=== PATIENT | male | born 1965 | race Caucasian/White ===

== ENCOUNTER 2018-05-03 08:30 | Day surgery (SDC) | payer OTHER ==
[2018-05-03] MEDS ORDERED: ECOTRIN PO NR (09:08)
[2018-05-03] MEDS ORDERED: NACL 0.9% 500 ML 500 ML IV SCH (10:00)
[2018-05-03 10:24] LABS: Basophils % (Auto) 0.8 % (0.0-1.8); Eosinophils # (Auto) 0.2 K/mm3 (0.0-0.4); Eosinophils % (Auto) 4.1 % (0.0-4.3); Hemoglobin 15.2 gm/dl (11.8-15.2); Lymphocytes # (Auto) 1.6 K/mm3 (1.2-5.4); Lymphocytes % (Auto) 27.6 % (13.4-35.0); Mean Corpuscular HGB Conc 34 % (32-34); Mean Corpuscular Hemoglobin 31 pg (28-32); Mean Corpuscular Volume 93 fl (84-94); Monocytes # (Auto) 0.8 K/mm3 (0.0-0.8); Monocytes % (Auto) 13.5 % (0.0-7.3); Platelet Count 188 K/mm3 (140-440); Red Blood Count 4.84 M/mm3 (3.65-5.03); Red Cell Distribution Width 12.9 % (13.2-15.2)
[2018-05-03 10:34] LABS: INR 0.87 (0.87-1.13)
[2018-05-03 10:35] LABS: BUN/Creatinine Ratio 20; Blood Urea Nitrogen 22 mg/dL (9-20); Calcium 9.7 mg/dL (8.4-10.2); Hemolysis Index 5; Partial Thromboplastin Time 25.3 Sec. (24.2-36.6)
[2018-05-03] MEDS ORDERED: HEPARIN 10,000 UNITS/10 ML ONE (10:58)
[2018-05-03] MEDS ORDERED: HEPARIN/NS 5000 UNIT/500ML(CATH LAB) 1,000 ML IR ONE (10:58)
[2018-05-03] MEDS ORDERED: NITROGLYCERIN SYRINGE 3 ML ONE (10:59)
[2018-05-03] MEDS ORDERED: SUBLIMAZE ONE (10:59)
[2018-05-03] MEDS ORDERED: CALAN ONE (10:59)
[2018-05-03] MEDS ORDERED: XYLOCAINE 2% INFILTRATI ONE (10:59)
[2018-05-03] MEDS ORDERED: VERSED ONE (10:59)
--- NOTE | 2018-05-03 12:13 | Short Stay Summary ---
Short Stay Documentation Date of service: 05/03/18 - History H&P: obtained from office - Allergies and Medications Current Medications: Allergies No Known Allergies Allergy (Unverified 05/03/18 08:33) Active Medications Sodium Chloride (Nacl 0.9% 500 Ml) 500 mls @ 50 mls/hr IV DIRECT PREET Stop: 05/03/18 19:59 Last Admin: 05/03/18 11:08 Dose: 50 mls/hr - Brief post op/procedure progress note Date of procedure: 05/03/18 Pre-op diagnosis: chf Post-op diagnosis: same Procedure: see report Anesthesia: local Estimated blood loss: none Pathology: none - Disposition Condition at discharge: Good Disposition: DC-01 TO HOME OR SELFCARE - Discharge Diagnoses (1) Hypertension Status: Chronic Qualifiers: Hypertension type: essential hypertension Qualified Code(s): I10 - Essential (primary) hypertension (2) Hyperlipemia, mixed Status: Chronic (3) CAD (coronary artery disease) Status: Acute Qualifiers: Coronary Disease-Associated Artery/Lesion type: [place] artery [place] vs. transplanted heart: [place] heart Associated angina: without angina Qualified Code(s): I25.10 - Atherosclerotic heart disease of [place] coronary artery without angina pectoris (4) Systolic heart failure Status: Acute Qualifiers: Heart failure chronicity: acute on chronic Qualified Code(s): I50.23 - Acute on chronic systolic (congestive) heart failure Short Stay Discharge Plan Diet: low fat, low cholesterol, low salt Wound: keep clean and dry Follow up with: MATTHEW URIARTE MD [Primary Care Provider] - 7 Days
--- NOTE | 2018-05-03 14:00 | Cardiac Catherization Report ---
LEFT HEART CATHETERIZATION ORDERING PHYSICIAN: Dr. Sylvester Kinney. 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 Moderate sedation supervised with 0.5 mg Versed and 25 mcg of fentanyl. Total sedation time was 20 minutes, start at 11:37 a.m. finished at 11:57 a.m. Procedure was performed via the right radial artery. Normal Dwayne's test, sterile technique, local and 6-Danish radial sheath inserted. PROCEDURE FINDINGS: Left system engaged with 3.5 catheter, left main is a feygih-wv-uptxt caliber vessels, patent, short. LAD is a afldri-wz-tnjlo caliber vessel, proximal is patent. Diagonal 1 is a medium caliber vessel, patent, then the LAD, mid has a diffuse 30% to 40% then diagonal 2 is a lvvvh-fj-whawvm caliber vessel and ostial 70%. Rest of the LAD is patent, medium caliber. Circumflex is a codominant vessel, proximal is patent. Ramus is a small caliber vessel, has a mid 40%, mid has a 40% to 50% crossed and a small OM1 that is less than 2 mm. Then, a distal circumflex prior to the OM2, OM3 has a focal 80% to 90% lesion noted. RCA is a small caliber vessel, proximal 60%, mid diffuse with focal areas of 80% to 90%, but the caliber vessel is less than 2.25 mm. LV gram done in [place] and [place] shows svrvieou-eu-kbpxca LV dysfunction, EF 30% to 35%. LVEDP of 10 mmHg, LV is 116 mmHg. Aortic is 114/69. No gradient across the aortic valve on pullback; 5-Danish catheters were taken over a guidewire, 6-Danish radial sheath was discontinued. Radial band applied. No hematoma, no bleeding. SUMMARY: 1. Nonobstructive coronary artery disease, disproportionate to cardiomyopathy. Left main patent, LAD mid 30% diagonal to ostial 70%, ramus 40%, circ mid 40-50. Distal is 80%, small OM1, 2, and 3 and RCA is a small vessel, less than 2.25 mm with a mid 80% to 90%. 2. We will treat medically at this time. Discussed this with the patient and the patient's family. JOB# [id number] NOAH/LEILANI
[2018-05-03 17:04] VITALS: BP 111/77
== END 2018-05-03 16:15 | disposition home or self-care (01) ==
LOC: CATHLABREC 08:30
PROVIDERS: ATTEND Internal Medicine
DX: I25.10 Atherosclerotic heart disease of native coronary artery without angina pectoris (principal); I42.0 Dilated cardiomyopathy; I11.0 Hypertensive heart disease with heart failure; I50.21 Acute systolic (congestive) heart failure; I49.3 Ventricular premature depolarization; B19.20 Unspecified viral hepatitis C without hepatic coma; Z79.82 Long term (current) use of aspirin; Z79.899 Other long term (current) drug therapy
CPT/HCPCS: 36415; 80048; 85025; 85610; 85730; 93005; 93010; 93458; 99156; C1894; J1644; J2250; J3010; J7040; Q9967

== ENCOUNTER 2018-05-27 10:30 | Observation (INO) | payer OTHER ==
[2018-05-27] MEDS ORDERED: NACL 0.9% 1 ML, VANCOMYCIN VIAL 1,000 MG IR ONE (11:03)
--- NOTE | 2018-05-27 11:18 | Anesthesia Consultation ---
Anesthesia Consult and Med Hx Date of service: 05/27/18 - Airway Anesthetic Teeth Evaluation: Poor ROM Head & Neck: Adequate Mental/Hyoid Distance: Adequate Mallampati Class: Class II Intubation Access Assessment: Probably Good - Pulmonary Exam CTA: Yes - Cardiac Exam Cardiac Exam: RRR - Pre-Operative Health Status ASA Pre-Surgery Classification: ASA3 Proposed Anesthetic Plan: General - Pulmonary Hx Smoking: Yes - Cardiovascular System Hx Hypertension: Yes Hx Cardia Arrhythmia: Yes - Endocrine Hx Liver Disease: Yes (Hepatitis C) - Other Systems Hx Cancer: No - Additional Comments Anesthesia Medical History Comments: NAC. Limited Irish. Arrhythmia not detected by auscultation. Some missing teeth, but none is loose.
--- NOTE | 2018-05-27 11:19 | Anesthesia Day of Surgery ---
Anesthesia Day of Surgery - Day of Surgery Patient Examined: Yes Patient H&P Reviewed: Yes Patient is NPO: Yes
[2018-05-27 11:38] LABS: Basophils # (Auto) 0.1 K/mm3 (0.0-0.1); Basophils % (Auto) 0.9 % (0.0-1.8); Eosinophils # (Auto) 0.3 K/mm3 (0.0-0.4); Eosinophils % (Auto) 4.7 % (0.0-4.3); Hematocrit 38.6 % (35.5-45.6); Hemoglobin 13.1 gm/dl (11.8-15.2); Lymphocytes # (Auto) 1.7 K/mm3 (1.2-5.4); Mean Corpuscular HGB Conc 34 % (32-34); Mean Corpuscular Hemoglobin 31 pg (28-32); Mean Corpuscular Volume 92 fl (84-94); Monocytes # (Auto) 0.9 K/mm3 (0.0-0.8); Monocytes % (Auto) 15.9 % (0.0-7.3); Platelet Count 192 K/mm3 (140-440); Red Blood Count 4.21 M/mm3 (3.65-5.03); Red Cell Distribution Width 12.8 % (13.2-15.2)
[2018-05-27] MEDS: NACL 0.9% 1000 ML 1,000 ML IV SCH ×2 (12:00→22:24)
[2018-05-27 12:09] LABS: INR 0.89 (0.87-1.13)
[2018-05-27 12:10] LABS: Partial Thromboplastin Time 27.7 Sec. (24.2-36.6)
[2018-05-27 12:16] LABS: BUN/Creatinine Ratio 30; Blood Urea Nitrogen 21 mg/dL (9-20); Calcium 8.8 mg/dL (8.4-10.2); Hemolysis Index 12
[2018-05-27] MEDS ORDERED: DIPRIVAN 10 MG/ML 1,000 MG/100 ML BOTTLE IV ONE (12:39)
[2018-05-27] MEDS ORDERED: HEPARIN/NS 5000 UNIT/500ML(CATH LAB) 1,000 ML IR ONE (12:48)
[2018-05-27] MEDS ORDERED: XYLOCAINE MPF 2% ONE (12:48)
[2018-05-27] MEDS ORDERED: VERSED IV ONE (12:48)
[2018-05-27] MEDS ORDERED: DILAUDID ONE (12:49)
[2018-05-27] MEDS ORDERED: XYLOCAINE 1% 20 mL ONE (12:50)
[2018-05-27] MEDS ORDERED: NACL 0.9% 500 ML IR ONE (12:50)
[2018-05-27] MEDS ORDERED: MARCAINE 0.5% 60 ML INFILTRATI ONE (12:50)
[2018-05-27] MEDS ORDERED: ANCEF/STERILE WATER 2 GM/20 ML 2 GM/20 ML SYRINGE IV ONE (12:50)
[2018-05-27] MEDS ORDERED: VANCOMYCIN VIAL 1,000 MG in NACL 0.9% 1,000 ML IRRIGATION ONE (13:54)
[2018-05-27] MEDS ORDERED: NORCO 5/325 PO PRN (14:23)
--- NOTE | 2018-05-27 14:56 | XRay Report ---
AP CHEST: HISTORY: Pacemaker postop A single lead pacemaker has been inserted which terminates in the expected position of the right ventricle. Borderline to mild cardiomegaly is evident. Normal pulmonary vascularity. The lungs are clear. No pneumothorax. IMPRESSION: Pacemaker placement as described. No pneumothorax.
[2018-05-27] MEDS ORDERED: APRESOLINE IV ONE (15:00)
[2018-05-27] MEDS ORDERED: ANCEF/NS 1 GM/50 ML 1 GM/50 ML BAG IV SCH (17:00)
[2018-05-28] MEDS: ANCEF/NS 1 GM/50 ML 1 GM/50 ML BAG IV SCH ×2 (00:12→08:54)
--- NOTE | 2018-05-28 10:25 | Short Stay Summary ---
Short Stay Documentation Date of service: 05/28/18 - History H&P: obtained from office - Allergies and Medications Current Medications: Allergies No Known Allergies Allergy (Unverified 05/03/18 08:33) Home Medications Medication Instructions Recorded Confirmed Last Taken Type Aspirin EC [Aspirin Enteric Coated 81 mg PO QDAY 05/03/18 05/03/18 05/02/18 History TAB] 81 mg Coreg 3.125 mg PO BID 05/03/18 05/03/18 05/02/18 History 3.125mg Furosemide [Lasix TAB] 40 mg PO QDAY 05/03/18 05/03/18 05/02/18 History 40 mg Lisinopril [Zestril] 20 mg PO QDAY 05/03/18 05/03/18 05/02/18 History 20 mg Spironolactone [Aldactone] 50 mg PO QDAY 05/03/18 05/03/18 05/02/18 History 50 mg Active Medications Acetaminophen/Hydrocodone Bitart ([place] 5/325) 1 each PO Q6H PRN PRN Reason: Pain, Moderate (4-6) Sodium Chloride (Nacl 0.9% 1000 Ml) 1,000 mls @ 42 mls/hr IV DIRECT PREET Last Admin: 05/27/18 22:24 Dose: 42 mls/hr - Physical exam General appearance: no acute distress Integumentary: no rash, no growths, no abnormal pigmentation, other (left pectoralis AICD implantation site pressure dressing removed, site covered with telfa and tegaderm dressing, c/d/i with no evidence of bleeding or hematoma) Lungs: Clear to auscultation Heart: Regular rate, Normal S1, Normal S2 Gastrointestinal: normal, normoactive bowel sounds Extremities: no ischemia, pulses intact, pulses symmetrical Neurological: Normal gait, Normal speech, Strength at 5/5 X4 ext - Brief post op/procedure progress note Date of procedure: 05/27/18 Pre-op diagnosis: dilated CMP Post-op diagnosis: same Procedure: AICD implantation - see operative report Estimated blood loss: none Condition: stable - Hospital course Hospital course: The pt is a 52-year-old male with a past medical history of a dilated cardiomyopathy, nonobstructive coronary artery disease, HTN, tobacco abuse, and hepatitis C. He presented for scheduled elective AICD implantation and subsequently underwent the procedure yesterday. He remained clinically and hemodynamically stable throughout his procedure and admission and is currently medically stable for discharge home. AICD interrogation this AM revealed normal device function. Post-procedure CXR with no pneumothorax, NAF. - Disposition Condition at discharge: Stable Disposition: DC-01 TO HOME OR SELFCARE - Discharge Diagnoses (1) Automatic implantable cardioverter-defibrillator in situ Status: Chronic (2) Dilated cardiomyopathy Status: Chronic (3) CAD (coronary artery disease) Status: Chronic Qualifiers: (4) Hypertension Status: Chronic Qualifiers: (5) Hepatitis C virus Status: Chronic (6) Tobacco use Status: Chronic Short Stay Discharge Plan Activity: advance as tolerated Diet: low cholesterol, low salt Wound: keep clean and dry, per your surgeon's advice Follow up with: MATTHEW URIARTE MD [Primary Care Provider] - 7 Days OUSMANE NASH MD [Staff Physician] - 7 Days (Post-op follow up in our [place] office on 06/07/2018 @ 2:30PM ) RICARDO KINNEY MD [Staff Physician] - 7 Days (Follow up with Dr. Kinney in our [place] office on 06/15/2018 @ 3:15PM)
[2018-05-28 12:37] VITALS: BP 157/104
[2018-05-28] MEDS ORDERED: COREG PO SCH (13:00)
== END 2018-05-28 16:02 | disposition home or self-care (01) ==
LOC: CATHLABREC 10:30 → 4A 14:23
PROVIDERS: ADMIT Internal Medicine Cardiovascular Disease; ATTEND Internal Medicine Cardiovascular Disease
DX: I11.0 Hypertensive heart disease with heart failure (principal); I50.22 Chronic systolic (congestive) heart failure; I42.8 Other cardiomyopathies; I25.10 Atherosclerotic heart disease of native coronary artery without angina pectoris; B19.20 Unspecified viral hepatitis C without hepatic coma; F17.200 Nicotine dependence, unspecified, uncomplicated
CPT/HCPCS: 33249; 36415; 71045; 80048; 85025; 85610; 85730; 93005; 93010; 96365; 96375; C1722; C1892; C1895; G0378; J0360; J0690; J1170; J1644; J2250; J2704; J3370; J7030; Q9967